=== PATIENT | female | born 1990 | race American Indian/Alaskan Native ===

== ENCOUNTER 2017-12-21 10:10 | Emergency (ER) | payer MEDICAID ==
[2017-12-21 10:19] VITALS: BP 113/80
--- NOTE | 2017-12-21 10:39 | Emergency Department Report ---
- General Chief Complaint: Upper Respiratory Infection Stated Complaint: CHEST PAIN/SOB Time Seen by Provider: 12/21/17 10:28 Source: patient Mode of arrival: Ambulatory Limitations: No Limitations - History of Present Illness MD Complaint: cough, sore throat, rhinorrhea -: days(s) (3) Severity: moderate Consistency: constant Improves With: nothing Worsens With: nothing Associated Symptoms: fever, myalgias, headache, sore throat, cough, chest pain ( with cough). denies: nausea, vomiting, diarrhea Treatments Prior to Arrival: "cold medicine" - Related Data Home Medications Medication Instructions Recorded Confirmed Last Taken metroNIDAZOLE [Metronidazole] 500 mg PO DAILY 04/24/13 04/25/13 04/24/13 09:00 Pnv with Ca,No.72/Iron/FA 1 tab PO DAILY 04/25/13 04/25/13 04/24/13 08:00 [ Plus Tablet] 1 tab Previous Rx's Medication Instructions Recorded Last Taken Type Docusate Sodium [Colace] 100 mg PO BID PRN #60 capsule 04/25/13 Unknown Rx Ibuprofen [Motrin] 800 mg PO TID PRN #30 tablet 04/25/13 Unknown Rx oxyCODONE /ACETAMINOPHEN [Percocet 1 - 2 tab PO Q6HR PRN #30 tablet 04/25/13 Unknown Rx 5/325 mg] ALBUTEROL Inhaler(NF) [VENTOLIN 1 puff IH Q4HR PRN #1 inha 12/21/17 Unknown Rx Inhaler(NF)] Benzonatate [Tessalon Perles] 100 mg PO Q8HR PRN #20 capsule 12/21/17 Unknown Rx Naproxen [Naprosyn] 500 mg PO BID #20 tablet 12/21/17 Unknown Rx Allergies Allergy/AdvReac Type Severity Reaction Status Date / Time No Known Allergies Allergy Verified 04/24/13 12:53 ED Review of Systems ROS: Stated complaint: CHEST PAIN/SOB Other details as noted in HPI Constitutional: fever ENT: throat pain Respiratory: cough. denies: shortness of breath Cardiovascular: chest pain Gastrointestinal: denies: nausea, vomiting, diarrhea Musculoskeletal: myalgia Neurological: headache ED Past Medical Hx - Past Medical History Hx Hypertension: No Hx Congestive Heart Failure: No Hx Diabetes: No Hx Deep Vein Thrombosis: No Hx Renal Disease: No Hx Sickle Cell Disease: No Hx Seizures: No Hx Asthma: No Hx COPD: No Hx HIV: No - Surgical History Past Surgical History?: No - Social History Smoking Status: Never Smoker Substance Use Type: None - Medications Home Medications: Home Medications Medication Instructions Recorded Confirmed Last Taken Type metroNIDAZOLE [Metronidazole] 500 mg PO DAILY 04/24/13 04/25/13 04/24/13 09:00 History Docusate Sodium [Colace] 100 mg PO BID PRN #60 capsule 04/25/13 Unknown Rx Ibuprofen [Motrin] 800 mg PO TID PRN #30 tablet 04/25/13 Unknown Rx Pnv with Ca,No.72/Iron/FA 1 tab PO DAILY 04/25/13 04/25/13 04/24/13 08:00 History [ Plus Tablet] 1 tab oxyCODONE /ACETAMINOPHEN [Percocet 1 - 2 tab PO Q6HR PRN #30 tablet 04/25/13 Unknown Rx 5/325 mg] ALBUTEROL Inhaler(NF) [VENTOLIN 1 puff IH Q4HR PRN #1 inha 12/21/17 Unknown Rx Inhaler(NF)] Benzonatate [Tessalon Perles] 100 mg PO Q8HR PRN #20 capsule 12/21/17 Unknown Rx Naproxen [Naprosyn] 500 mg PO BID #20 tablet 12/21/17 Unknown Rx ED Physical Exam - General Limitations: No Limitations General appearance: alert, in no apparent distress - Head Head exam: Present: atraumatic, normocephalic - Eye Eye exam: Present: normal appearance, EOMI - ENT ENT exam: Present: normal orophraynx, mucous membranes moist - Neck Neck exam: Present: normal inspection. Absent: lymphadenopathy - Respiratory Respiratory exam: Present: wheezes (occasional) - Cardiovascular Cardiovascular Exam: Present: normal rhythm, tachycardia - GI/Abdominal GI/Abdominal exam: Present: soft. Absent: tenderness - Extremities Exam Extremities exam: Present: normal inspection - Neurological Exam Neurological exam: Present: alert, oriented X3, CN II-XII intact. Absent: motor sensory deficit - Psychiatric Psychiatric exam: Present: normal affect, normal mood - Skin Skin exam: Present: warm, dry, intact, normal color. Absent: rash ED Course Vital Signs 12/21/17 10:16 Temperature 98.6 F Pulse Rate 110 H Blood Pressure 113/80 O2 Sat by Pulse 96 Oximetry ED Medical Decision Making - Differential Diagnosis URI, viral illnes, influenza Critical care attestation.: If time is entered above; I have spent that time in minutes in the direct care of this critically ill patient, excluding procedure time. ED Disposition Clinical Impression: Viral upper respiratory infection Disposition: TO HOME OR SELFCARE Is pt being admited?: No Condition: Stable Instructions: Influenza (ED), Upper Respiratory Infection (ED) Prescriptions: ALBUTEROL Inhaler(NF) [VENTOLIN Inhaler(NF)] 1 puff IH Q4HR PRN #1 inha PRN Reason: Wheezing Benzonatate [Tessalon Perles] 100 mg PO Q8HR PRN #20 capsule PRN Reason: Cough Naproxen [Naprosyn] 500 mg PO BID #20 tablet Referrals: [facility] [Provider Group] - 3-5 Days PRIMARY CARE,MD [Primary Care Provider] - 3-5 Days Time of Disposition: 10:38
== END 2017-12-21 10:46 | disposition home or self-care (01) ==
LOC: ED 10:10
DX: J06.9 Acute upper respiratory infection, unspecified (principal)
CPT/HCPCS: 99281

== ENCOUNTER 2018-04-03 12:12 | Emergency (ER) | payer OTHER ==
--- NOTE | 2018-04-03 13:41 | Emergency Department Report ---
ED ENT HPI - General Chief complaint: Earache Stated complaint: POSS EAR INFECTION Time Seen by Provider: 04/03/18 13:36 Source: patient Mode of arrival: Ambulatory Limitations: No Limitations - History of Present Illness Initial comments: This is a 27-year-old female brought by mother nontoxic, well nourished in appearance, no acute signs of distress presents to the ED with c/o of right earache. Patient denies any ear drainage. Patient denies any trauma to the area. Patient denies any mastoid tenderness. Patient agrees to tragus tenderness. Patient denies hearing decrease or hearing changes. Patient denies any fever, chills, nausea, vomiting, chest pain, short of breath, headache or stiff neck. Patient denies any drug allergies or significant past medical history. MD complaint: ear pain -: week(s) (1) Location: L ear Severity: mild Severity scale (0 -10): 8 Quality: aching Consistency: constant Improves with: none Worsens with: none Associated Symptoms: denies: fever, cough, gum swelling, toothache, pain with swallowing, sore throat, tinnitus, hearing loss, discharge from ear, rhinorrhea - Related Data Home Medications Medication Instructions Recorded Confirmed Last Taken metroNIDAZOLE [Metronidazole] 500 mg PO DAILY 04/24/13 04/25/13 04/24/13 09:00 Pnv with Ca,No.72/Iron/FA 1 tab PO DAILY 04/25/13 04/25/13 04/24/13 08:00 [ Plus Tablet] 1 tab Previous Rx's Medication Instructions Recorded Last Taken Type Docusate Sodium [Colace] 100 mg PO BID PRN #60 capsule 04/25/13 Unknown Rx Ibuprofen [Motrin] 800 mg PO TID PRN #30 tablet 04/25/13 Unknown Rx oxyCODONE /ACETAMINOPHEN [Percocet 1 - 2 tab PO Q6HR PRN #30 tablet 04/25/13 Unknown Rx 5/325 mg] ALBUTEROL Inhaler(NF) [VENTOLIN 1 puff IH Q4HR PRN #1 inha 12/21/17 Unknown Rx Inhaler(NF)] Benzonatate [Tessalon Perles] 100 mg PO Q8HR PRN #20 capsule 12/21/17 Unknown Rx Naproxen [Naprosyn TAB] 500 mg PO BID #20 tablet 02/28/18 Unknown Rx Amoxicillin [Amoxicillin TAB] 875 mg PO BID #20 tablet 04/03/18 Unknown Rx Ciprofloxacin 0.2%(Nf) 2 drops AD TID #1 droperette 04/03/18 Unknown Rx [Ciprofloxacin Otic 0.2%(Nf)] Allergies Allergy/AdvReac Type Severity Reaction Status Date / Time No Known Allergies Allergy Verified 04/24/13 12:53 ED Dental HPI - General Chief complaint: Earache Stated complaint: POSS EAR INFECTION Time Seen by Provider: 04/03/18 13:36 Source: patient Mode of arrival: Ambulatory Limitations: No Limitations - Related Data Home Medications Medication Instructions Recorded Confirmed Last Taken metroNIDAZOLE [Metronidazole] 500 mg PO DAILY 04/24/13 04/25/13 04/24/13 09:00 Pnv with Ca,No.72/Iron/FA 1 tab PO DAILY 04/25/13 04/25/13 04/24/13 08:00 [ Plus Tablet] 1 tab Previous Rx's Medication Instructions Recorded Last Taken Type Docusate Sodium [Colace] 100 mg PO BID PRN #60 capsule 04/25/13 Unknown Rx Ibuprofen [Motrin] 800 mg PO TID PRN #30 tablet 04/25/13 Unknown Rx oxyCODONE /ACETAMINOPHEN [Percocet 1 - 2 tab PO Q6HR PRN #30 tablet 04/25/13 Unknown Rx 5/325 mg] ALBUTEROL Inhaler(NF) [VENTOLIN 1 puff IH Q4HR PRN #1 inha 12/21/17 Unknown Rx Inhaler(NF)] Benzonatate [Tessalon Perles] 100 mg PO Q8HR PRN #20 capsule 12/21/17 Unknown Rx Naproxen [Naprosyn TAB] 500 mg PO BID #20 tablet 02/28/18 Unknown Rx Amoxicillin [Amoxicillin TAB] 875 mg PO BID #20 tablet 04/03/18 Unknown Rx Ciprofloxacin 0.2%(Nf) 2 drops AD TID #1 droperette 04/03/18 Unknown Rx [Ciprofloxacin Otic 0.2%(Nf)] Allergies Allergy/AdvReac Type Severity Reaction Status Date / Time No Known Allergies Allergy Verified 04/24/13 12:53 ED Review of Systems ROS: Stated complaint: POSS EAR INFECTION Other details as noted in HPI Constitutional: denies: chills, fever Eyes: denies: eye pain, eye discharge, vision change ENT: ear pain. denies: throat pain Respiratory: denies: cough, shortness of breath, wheezing Cardiovascular: denies: chest pain, palpitations Endocrine: no symptoms reported Gastrointestinal: denies: abdominal pain, nausea, diarrhea Genitourinary: denies: urgency, dysuria, discharge Musculoskeletal: denies: back pain, joint swelling, arthralgia Skin: denies: rash, lesions Neurological: denies: headache, weakness, paresthesias Psychiatric: denies: anxiety, depression Hematological/Lymphatic: denies: easy bleeding, easy bruising ED Past Medical Hx - Past Medical History Previous Medical History?: No Hx Hypertension: No Hx Congestive Heart Failure: No Hx Diabetes: No Hx Deep Vein Thrombosis: No Hx Renal Disease: No Hx Sickle Cell Disease: No Hx Seizures: No Hx Asthma: No Hx COPD: No Hx HIV: No - Surgical History Past Surgical History?: Yes Additional Surgical History: C-sections X 3 - Social History Smoking Status: Never Smoker - Medications Home Medications: Home Medications Medication Instructions Recorded Confirmed Last Taken Type metroNIDAZOLE [Metronidazole] 500 mg PO DAILY 04/24/13 04/25/13 04/24/13 09:00 History Docusate Sodium [Colace] 100 mg PO BID PRN #60 capsule 04/25/13 Unknown Rx Ibuprofen [Motrin] 800 mg PO TID PRN #30 tablet 04/25/13 Unknown Rx Pnv with Ca,No.72/Iron/FA 1 tab PO DAILY 04/25/13 04/25/13 04/24/13 08:00 History [ Plus Tablet] 1 tab oxyCODONE /ACETAMINOPHEN [Percocet 1 - 2 tab PO Q6HR PRN #30 tablet 04/25/13 Unknown Rx 5/325 mg] ALBUTEROL Inhaler(NF) [VENTOLIN 1 puff IH Q4HR PRN #1 inha 12/21/17 Unknown Rx Inhaler(NF)] Benzonatate [Tessalon Perles] 100 mg PO Q8HR PRN #20 capsule 12/21/17 Unknown Rx Naproxen [Naprosyn TAB] 500 mg PO BID #20 tablet 02/28/18 Unknown Rx Amoxicillin [Amoxicillin TAB] 875 mg PO BID #20 tablet 04/03/18 Unknown Rx Ciprofloxacin 0.2%(Nf) 2 drops AD TID #1 droperette 04/03/18 Unknown Rx [Ciprofloxacin Otic 0.2%(Nf)] ED Physical Exam - General Limitations: No Limitations General appearance: alert, in no apparent distress - Head Head exam: Present: atraumatic, normocephalic - Eye Eye exam: Present: normal appearance - Expanded ENT Exam Expanded Ear exam: Present: normal external inspection TM/Canal exam: Erythema: Left TM, Bulging: Left TM Mouth exam: Present: normal external inspection Teeth exam: Present: normal inspection Throat exam: Positive: normal inspection - Neck Neck exam: Present: normal inspection, full ROM. Absent: tenderness, meningismus, lymphadenopathy - Other Other exam information: positive tragus pain. ED Course Vital Signs 04/03/18 12:29 Temperature 98.7 F Pulse Rate 97 H Respiratory 16 Rate Blood Pressure 116/66 O2 Sat by Pulse 98 Oximetry - Reevaluation(s) Reevaluation #1: 04/03/18 13:39 Patient is speaking in full sentences with no signs of distress noted. Critical care attestation.: If time is entered above; I have spent that time in minutes in the direct care of this critically ill patient, excluding procedure time. ED Disposition Clinical Impression: Left otitis media Qualifiers: Otitis media type: unspecified Qualified Code(s): H66.92 - Otitis media, unspecified, left ear Left otitis externa Qualifiers: Otitis externa type: unspecified type Chronicity: acute Qualified Code(s): H60.502 - Unspecified acute noninfective otitis externa, left ear Disposition: DC- TO HOME OR SELFCARE Is pt being admited?: No Does the pt Need Aspirin: No Condition: Stable Instructions: Otitis Media (ED), Otitis Externa (ED) Additional Instructions: Follow-up with a primary care doctor in 3-5 days or if symptoms worsen and continue return to emergency room as soon as possible. Prescriptions: Amoxicillin [Amoxicillin TAB] 875 mg PO BID #20 tablet Ciprofloxacin 0.2%(Nf) [Ciprofloxacin Otic 0.2%(Nf)] 2 drops AD TID #1 droperette Referrals: PRIMARY CARE, [Referring] - 3-5 Days JEREMIAS ROBISON MD [Staff Physician] - 3-5 Days [facility] [Outside] - 3-5 Days Forms: Work/School Release Form(ED)
== END 2018-04-03 14:38 | disposition home or self-care (01) ==
LOC: ED 12:12
CPT/HCPCS: 99281

== ENCOUNTER 2019-02-06 09:26 | Emergency (ER) | payer MEDICAID, OTHER ==
--- NOTE | 2019-02-06 09:53 | Event Note ---
ED Screening Note Date of service: 02/06/19 Time: 09:50 ED Screening Note: 28 y/o female comes in for vaginal bleeding and cramps. LMP 01/03/19. Thinks she is having a miscarriage. This initial assessment/diagnostic orders/clinical plan/treatment(s) is/are subject to change based on patients health status, clinical progression and re- assessment by fellow clinical providers in the ED. Further treatment and workup at subsequent clinical providers discretion. Patient/guardian urged not to elope from the ED as their condition may be serious if not clinically assessed and managed. Initial orders include:
[2019-02-06 10:45] LABS: Bacteria,Urine 1+ /HPF (Negative); Bilirubin,Urine NEG (Negative); Blood,Urine LG (Negative); Color,Urine Red (Yellow); Mucus,Urine FEW /HPF; Urobilinogen,Urine < 2.0 mg/dL (<2.0)
[2019-02-06 10:46] LABS: RBC,Urine > 182.0 /HPF (0.0-6.0)
--- NOTE | 2019-02-06 11:25 | Emergency Department Report ---
ED Female HPI - General Chief complaint: Vaginal Bleeding Stated complaint: POSS MISCARRIAGE Time Seen by Provider: 02/06/19 09:50 Source: patient Mode of arrival: Ambulatory Limitations: No Limitations - History of Present Illness Initial comments: 28 y/o female comes in for vaginal bleeding and cramps. LMP 01/03/19. Thinks she is having a miscarriage. . Complaint: vaginal bleeding Quality: cramping Consistency: constant Improves with: none Worsens with: none Are you Now?: Yes Last Menstrual Period: 01/03/19 EDC: 10/10/19 Associated Symptoms: vaginal bleeding, abdominal pain, nausea/vomiting - Related Data Home Medications Medication Instructions Recorded Confirmed Last Taken metroNIDAZOLE [Metronidazole] 500 mg PO DAILY 04/24/13 04/25/13 04/24/13 09:00 Pnv with Ca,No.72/Iron/FA 1 tab PO DAILY 04/25/13 04/25/13 04/24/13 08:00 [ Plus Tablet] 1 tab Previous Rx's Medication Instructions Recorded Last Taken Type Docusate Sodium [Colace] 100 mg PO BID PRN #60 capsule 04/25/13 Unknown Rx oxyCODONE /ACETAMINOPHEN [Percocet 1 - 2 tab PO Q6HR PRN #30 tablet 04/25/13 Unknown Rx 5/325 mg] ALBUTEROL Inhaler(NF) [VENTOLIN 1 puff IH Q4HR PRN #1 inha 12/21/17 Unknown Rx Inhaler(NF)] Benzonatate [Tessalon Perles] 100 mg PO Q8HR PRN #20 capsule 12/21/17 Unknown Rx Naproxen [Naprosyn TAB] 500 mg PO BID #20 tablet 02/28/18 Unknown Rx Amoxicillin [Amoxicillin TAB] 875 mg PO BID #20 tablet 04/03/18 Unknown Rx Ciprofloxacin 0.2%(Nf) 2 drops AD TID #1 droperette 04/03/18 Unknown Rx [Ciprofloxacin Otic 0.2%(Nf)] Ibuprofen [Motrin 800 MG tab] 800 mg PO TID PRN #30 tablet 02/06/19 Unknown Rx Allergies Allergy/AdvReac Type Severity Reaction Status Date / Time No Known Allergies Allergy Verified 04/24/13 12:53 ED Review of Systems ROS: Stated complaint: POSS MISCARRIAGE Other details as noted in HPI ED Past Medical Hx - Past Medical History Previous Medical History?: No Hx Hypertension: No Hx Congestive Heart Failure: No Hx Diabetes: No Hx Deep Vein Thrombosis: No Hx Renal Disease: No Hx Sickle Cell Disease: No Hx Seizures: No Hx Asthma: No Hx COPD: No Hx HIV: No - Surgical History Past Surgical History?: Yes Additional Surgical History: C-sections X 3 - Social History Smoking Status: Never Smoker - Medications Home Medications: Home Medications Medication Instructions Recorded Confirmed Last Taken Type metroNIDAZOLE [Metronidazole] 500 mg PO DAILY 04/24/13 04/25/13 04/24/13 09:00 History Docusate Sodium [Colace] 100 mg PO BID PRN #60 capsule 04/25/13 Unknown Rx Pnv with Ca,No.72/Iron/FA 1 tab PO DAILY 04/25/13 04/25/13 04/24/13 08:00 History [ Plus Tablet] 1 tab oxyCODONE /ACETAMINOPHEN [Percocet 1 - 2 tab PO Q6HR PRN #30 tablet 04/25/13 Unknown Rx 5/325 mg] ALBUTEROL Inhaler(NF) [VENTOLIN 1 puff IH Q4HR PRN #1 inha 12/21/17 Unknown Rx Inhaler(NF)] Benzonatate [Tessalon Perles] 100 mg PO Q8HR PRN #20 capsule 12/21/17 Unknown Rx Naproxen [Naprosyn TAB] 500 mg PO BID #20 tablet 02/28/18 Unknown Rx Amoxicillin [Amoxicillin TAB] 875 mg PO BID #20 tablet 04/03/18 Unknown Rx Ciprofloxacin 0.2%(Nf) 2 drops AD TID #1 droperette 04/03/18 Unknown Rx [Ciprofloxacin Otic 0.2%(Nf)] Ibuprofen [Motrin 800 MG tab] 800 mg PO TID PRN #30 tablet 02/06/19 Unknown Rx ED Physical Exam - General Limitations: No Limitations ED Course Vital Signs 02/06/19 02/06/19 11:09 13:34 Temperature 98.1 F 98.1 F Pulse Rate 73 69 Respiratory 20 16 Rate Blood Pressure 106/60 Blood Pressure 119/73 [Right] O2 Sat by Pulse 100 97 Oximetry ED Medical Decision Making - Lab Data Result diagrams: 02/06/19 11:16 - Radiology Data Radiology results: report reviewed Patient: THIEN YOUSIF MR#: [id number] : 1990 Acct:[id number] Age/Sex: 28 / F ADM Date: 02/06/19 Loc: ED Attending Dr: Ordering Physician: MELISA RODRIGUEZ Date of Service: 02/06/19 Procedure(s): US OB transvaginal Accession Number(s): [id number] cc: MELISA RODRIGUEZ Obstetrical ultrasound. 02/06/2019. HISTORY: Vaginal bleeding. FINDINGS: Imaging was performed by transabdominally and endovaginally. The uterus measures 8.3 x 3.4 x 6.2 cm. Endometrial stripe measures 4.8 mm. Negative for intrauterine . Right ovary measures 3.3 x 1.8 x 2.7 cm. Left ovary measures 3.2 x 1.6 x 3.2 cm. Both ovaries demonstrate appropriate flow. Negative for adnexal mass or fluid. IMPRESSION: Negative pelvic ultrasound. Signer Name: Pierre Babb MD Signed: 02/06/2019 1:18 PM Workstation Name: [id number] Transcribed By: ES Dictated By: Pierre Babb MD Electronically Authenticated By: Pierre Babb MD Signed Date/Time: 02/06/191317 DD/ 16 TD/TT: - Medical Decision Making 28 y/o female comes in for vaginal bleeding and cramps. LMP 01/03/19. Thinks she is having a miscarriage. . Critical care attestation.: If time is entered above; I have spent that time in minutes in the direct care of this critically ill patient, excluding procedure time. ED Disposition Clinical Impression: Abnormal menstrual cycle Disposition: DC-01 TO HOME OR SELFCARE Is pt being admited?: No Does the pt Need Aspirin: No Instructions: Menstruation (ED) Additional Instructions: Ultrasound is negative for any . You are currently on your menstrual cycle. Continue with ibuprofen or Tylenol for pain management. Follow up with her [employer]. Prescriptions: Ibuprofen [Motrin 800 MG tab] 800 mg PO TID PRN #30 tablet PRN Reason: Moderate Pain Referrals: PRIMARY CARE, [Primary Care Provider] - 3-5 Days Forms: Work/School Release Form(ED)
[2019-02-06 11:28] LABS: Basophils % (Auto) 0.9 % (0.0-1.8); Hematocrit 39.3 % (30.3-42.9); Hemoglobin 13.6 gm/dl (10.1-14.3); Lymphocytes # (Auto) 1.5 K/mm3 (1.2-5.4); Lymphocytes % (Auto) 31.8 % (13.4-35.0); Mean Corpuscular HGB Conc 35 % (30-34); Mean Corpuscular Volume 102 fl (79-97); Monocytes # (Auto) 0.3 K/mm3 (0.0-0.8); Monocytes % (Auto) 5.9 % (0.0-7.3); Platelet Count 234 K/mm3 (140-440); Red Blood Count 3.86 M/mm3 (3.65-5.03); Red Cell Distribution Width 13.5 % (13.2-15.2)
--- NOTE | 2019-02-06 13:23 | Ultrasound Report ---
Obstetrical ultrasound. 02/06/2019. HISTORY: Vaginal bleeding. FINDINGS: Imaging was performed by transabdominally and endovaginally. The uterus measures 8.3 x 3.4 x 6.2 cm. Endometrial stripe measures 4.8 mm. Negative for intrauterine . Right ovary measures 3.3 x 1.8 x 2.7 cm. Left ovary measures 3.2 x 1.6 x 3.2 cm. Both ovaries demonst rate appropriate flow. Negative for adnexal mass or fluid. IMPRESSION: Negative pelvic ultrasound. Signer Name: Pierre Babb MD Signed: 02/06/2019 1:18 PM Workstation Name: [id number]
[2019-02-06] MEDS ORDERED: ACETAMINOPHEN 325 MG TAB PO ONE (13:34)
[2019-02-06 13:35] VITALS: BP 106/60
== END 2019-02-06 13:44 | disposition home or self-care (01) ==
LOC: ED 09:26
DX: N92.6 Irregular menstruation, unspecified (principal); Z98.890 Other specified postprocedural states; Z79.1 Long term (current) use of non-steroidal anti-inflammatories (NSAID); Z79.2 Long term (current) use of antibiotics; Z79.899 Other long term (current) drug therapy
CPT/HCPCS: 36415; 76801; 76802; 76817; 81001; 84702; 85025; 86850; 86900; 86901